=== PATIENT | male | born 1955 | race Two or more races ===

== ENCOUNTER 2022-03-14 10:56 | Emergency (ER) | payer BC ==
[~2022-03-14] VITALS: Ht 175.3 cm; Wt 102.1 kg
[2022-03-14] MEDS ORDERED: METOPROLOL SUCC25 MG PO (11:20)
[2022-03-14] MEDS ORDERED: CHILDREN'S ASPI81 MG PO (11:20)
[2022-03-14] MEDS ORDERED: LOSARTAN POTASS25 MG PO (11:20)
== END 2022-03-14 15:01 | disposition home or self-care (01) ==
LOC: ER 10:56
DX: S79.922A Unspecified injury of left thigh, initial encounter (principal); Y93.9 Activity, unspecified; Y92.814 Boat as the place of occurrence of the external cause